=== PATIENT | female | born 1960 | race Caucasian/White ===

== ENCOUNTER 2020-09-01 18:23 | Outpatient (CLI) | payer OTHER | END 2020-09-01 23:59 | disposition home or self-care (01) | LOC: LAB.N 18:23 | PROVIDERS: ATTEND Family Medicine | DX: N30.01 Acute cystitis with hematuria (principal) | CPT/HCPCS: 87077; 87086; 87181 ==

== ENCOUNTER 2021-04-23 08:00 | Outpatient (CLI) | payer OTHER | END 2021-04-23 23:59 | disposition home or self-care (01) | LOC: LAB.N 08:00 | PROVIDERS: ATTEND Nurse Practitioner | DX: N30.90 Cystitis, unspecified without hematuria (principal) | CPT/HCPCS: 87086 ==

== ENCOUNTER 2022-02-17 15:01 | Outpatient (CLI) | payer OTHER ==
--- NOTE | 2022-02-17 16:17 | XRAY Report ---
PROCEDURE: Ankle 3 View LT INDICATIONS: L ANKLE PX TECHNIQUE: 3 views of the ankle were acquired. COMPARISON: None FINDINGS: Bones: Subtle oblique nondisplaced distal fibular fracture extending to the articular surface. Ankle mortise is normally aligned. No suspicious bony lesions. Soft tissues: No tibiotalar joint effusion. Achilles tendon appears normal. Lateral soft tissue sw elling. IMPRESSION: Nondisplaced lateral malleolar fracture. Ankle mortise appears intact. Reviewed by: Johnnie Lopez MD on 02/17/2022 4:16 PM PST Approved by: Johnnie Lopez MD on 02/17/2022 4:16 PM PST Station ID: [id number]
== END 2022-02-17 23:59 | disposition home or self-care (01) ==
LOC: DI.N 15:01
PROVIDERS: ATTEND Family Medicine
DX: S82.65XA Nondisplaced fracture of lateral malleolus of left fibula, initial encounter for closed fracture (principal)